=== PATIENT | female | born 1960 | race African-American/Black ===

== ENCOUNTER → 2017-04-13 | Outpatient (CLI) | payer OTHER ==
[~2017-04-13] MED LIST: (NONE)2.5 MG PO; ADVAIR 45-21 INH; ALDACTONE PO; ALDACTONE25 MG PO; AMITRYPTYLINE PO; ASPIRIN EC81 M1 PO; AZITHROMYCIN250 MG PO; BACTRIM DS TABL1 TA1 PO; CALCIUM 600 +1 EAC3 PO; CLARITIN10 M1; COMBIVENT INH14.7 GM INH; COREG PO; COREG6.25 MG PO; CYCLOBENZAPRINE5 MG; DIOVAN160 MG PO; DUONEB 2.5-0.5 M3 ML NEB; FOSAMAX35 MG PO; HYCODAN60 ML 5MG/ PO; LIPITOR PO; LIPITOR20 MG PO; MACROBID100 M1 PO; MEDROL DOSEPAK4 MG PO; METFORMIN HCL500 M1 PO; MOBIC; NEURONTIN PO; NEXIUM; PAROXETINE HCL20 MG PO; PAXIL; PERCOCET 5-3251 TAB PO; PHENERGAN25 MG PO; PRILOSEC20 M1 PO; PRINIVIL20 M1 PO; ZOFRAN ODT4 MG PO
--- NOTE | ~2017-04-13 | EKG ---
PATIENT: YARY JOINER UNIT #: [id number] Ventricular Rate: 62 BPM Atrial Rate: 62 BPM P-R Interval: 194 ms QRS Duration: 84 ms Q-T Interval: 410 ms QTC Calculation(Bezet): 416 ms P [place]: 36 degrees Calculated R [place]: 42 degrees Calculated T [place]: 32 degrees Diagnosis Line: Normal sinus rhythm Diagnosis Line: Low voltage QRS Diagnosis Line: Inferior infarct (cited on or before 13-APR-2017) Diagnosis Line: Abnormal ECG Diagnosis Line: When compared with ECG of 06-AUG-2013 03:10, Diagnosis Line: Premature ventricular complexes are no longer Diagnosis Line: Present Diagnosis Line: QT has shortened Diagnosis Line: Confirmed by NICOLE JUNIOR MD ([id number]) on Diagnosis Line: 04/15/2017 1:06:24 PM INTERPRETING MD: [email or web address]
[2017-04-13 12:00] LABS: HEMATOCRIT 46.3 % (35.0-45.0); HEMOGLOBIN 14.6 gm/dL (12.0-16.0); MEAN CELL VOLUME 82.6 FL (83-96); MEAN CORPUSCULAR HEMOGLOBIN 26.1 PG (28-34); MEAN CORPUSCULAR HGB CONC 31.5 g/dL (30-36); MEAN PLATELET VOLUME 8.1 FL (6.5-11.5); RED BLOOD COUNT 5.61 X10e (3.90-5.30); RED CELL DISTRIBUTION WIDTH 14.3 % (11.0-15.5); WHITE BLOOD COUNT 5.7 X10e3 (4.0-10.5)
[2017-04-13 12:31] LABS: ALBUMIN SERUM 3.6 g/dL (3.5-5.0); BILIRUBIN,TOTAL 1.3 mg/dL (0.2-2.0); BUN/CREATININE RATIO 12.22; CALCIUM SERUM 9.8 mg/dL (8.4-10.2); CREATININE SERUM 0.9 mg/dL (0.6-1.4); GLOM FILT RATE Estimated 82.3 mL/min (>60); PROTEIN TOTAL SERUM 7.4 g/dL (6.0-8.3)
== END | disposition home or self-care (01) ==
LOC: CAMB 11:32 → EDSTATUS 12:00
PROVIDERS: Specialist
DX: Z01.818 Encounter for other preprocedural examination (principal); K80.10 Calculus of gallbladder with chronic cholecystitis without obstruction; M19.90 Unspecified osteoarthritis, unspecified site; J45.909 Unspecified asthma, uncomplicated; I25.10 Atherosclerotic heart disease of native coronary artery without angina pectoris; C50.919 Malignant neoplasm of unspecified site of unspecified female breast; R07.9 Chest pain, unspecified; R94.31 Abnormal electrocardiogram [ECG] [EKG]
CPT/HCPCS: 36415; 80053; 85027; 93005

== ENCOUNTER → 2017-04-20 | Day surgery (SDC) | payer OTHER | END | disposition home or self-care (01) | LOC: CSUR 10:30 | DX: Z53.9 Procedure and treatment not carried out, unspecified reason (principal) | CPT/HCPCS: 82947; J0690 ==